=== PATIENT | male | born 1985 | race Caucasian/White ===

== ENCOUNTER 2023-07-20 18:13 | Emergency (ER) | payer OTHER, SELFPAY ==
[2023-07-20] VITALS (31 sets, daily range): BP systolic 96–126; BP diastolic 67–90; PULSE 71–180; RESP 15–22; TEMP 37.1; O2SAT 95–100
--- NOTE | ~2023-07-20 | XR_ITS ---
EXAMINATION: XR chest 1V portable Exam Date/Time: 07/20/2023 18:37 CDT HISTORY: Chest pain x1 day Comparison: 10/02/2022. RESULT: Lines, tubes, and devices: Defibrillator pad overlies the chest. Lungs and pleura: Clear. Cardiomediastinal silhouette: Stable. Other: No acute osseous or upper abdominal finding. IMPRESSION: No acute cardiopulmonary process. Reviewed, dictated and finalized at location K.
--- NOTE | 2023-07-20 18:15 | ECG_ITS ---
Measurements Intervals [place] Rate: 181 P: [place]: 0 QRS: 35 QRSD: 136 T: 197 QT: 275 QTc: 478 Interpretive Statements WIDE COMPLEX TACHYCARDIA, CONSIDER VENTRIULAR TACHYCARDIA LEFT BUNDLE BRANCH BLOCK BASELINE WANDER- V5 ABNORMAL ECG NO PREVIOUS ECG AVAILABLE FOR COMPARISON Electronically Signed On 07-20-2023 19:24:54 CDT by Rocky Rosales D.O.
--- NOTE | 2023-07-20 18:31 | ECG_ITS ---
Measurements Intervals [place] Rate: 79 P: 37 [place]: 130 QRS: 39 QRSD: 98 T: 30 QT: 360 QTc: 413 Interpretive Statements SINUS RHYTHM INCOMPLETE RIGHT BUNDLE BRANCH BLOCK BORDERLINE ECG COMPARED TO ECG 07/20/2023 18:17:56 SINUS RHYTHM NOW PRESENT Electronically Signed On 07-20-2023 19:19:17 CDT by Rocky Rosales D.O.
[2023-07-20 18:41] LABS: Basophils Absolute Auto 0.02 K/mm3 (0.00-0.10); Basophils Percent Auto 0.2 % (0.0-1.0); Eosinophils Absolute Auto 0.11 K/mm3 (0.02-0.50); Eosinophils Percent Auto 1.1 % (1.0-6.0); Hematocrit 44.6 % (40.0-54.0); Hemoglobin 15.1 g/dL (14.0-18.0); Immature Granulocyte Absolute 0.02 K/mm3 (0.00-0.00); Immature Granulocyte Percent A 0.2 % (0.0-0.0); Lymphocytes Absolute Auto 3.74 K/mm3 (1.10-4.50); Mean Corpuscular HGB Conc 33.9 g/dL (32-36); Mean Corpuscular Volume 88.5 fL (78.0-102.0); Mean Platelet Volume 11.4 fl (8.7-11.0); Monocytes Absolute Auto 0.54 K/mm3 (0.10-0.90); Monocytes Percent Auto 5.3 % (2.0-11.0); Neutrophils Absolute Auto 5.67 K/mm3 (1.70-7.20); Neutrophils Percent Auto 56.2 % (50.0-70.0); Platelet Count Result 251 K/mm3 (150-420); Red Blood Count 5.04 M/mm3 (4.70-6.10); Red Cell Distribution Width 12.9 % (11.6-14.4); White Blood Count 10.1 K/mm3 (4.8-10.8)
--- NOTE | 2023-07-20 18:44 | ED.CHESTPAIN ---
HPI - Chest Pain General Chief Complaint: Chest Pain <Shahid Castro MD - Last Filed: 07/20/23 18:54> Stated Complaint: rapid heart rate <Shahid Castro MD - Last Filed: 07/20/23 18:54> Time Seen by Provider: 07/20/23 20:14 <Shahid Castro MD - Last Filed: 07/20/23 18:54> Source: patient <Shahid Castro MD - Last Filed: 07/20/23 18:54> Mode of arrival: ambulatory <Shahid Castro MD - Last Filed: 07/20/23 18:54> Limitations: no limitations <Shahid Castro MD - Last Filed: 07/20/23 18:54> History of Present Illness HPI narrative: Patient is a 37-year-old male with known WPW and history of AFib and otherwise SVT issues. He is not on any medication at this time. He was to be on a blood thinner in the past but is not using any medication at this current time. He was outside today drinking minimal water and started to feel bad like it was some sort of arrhythmia and came to the emergency room. He was found to be in a wide complex tachycardia and self converted in 15 minutes of being in the emergency room. No medication was required and he converted to normal sinus rhythm. patient has been electro cardioverted twice in the past. <Shahid Castro MD - Last Filed: 07/20/23 18:54> MD complaint: chest pain and chest heaviness <Shahid Castro MD - Last Filed: 07/20/23 18:54> Pertinent past history: other ( Known arrhythmia issues; patient has heart ablation October this year) <Shahid Castro MD - Last Filed: 07/20/23 18:54> Onset (ago): hour(s) (1) <Shahid Castro MD - Last Filed: 07/20/23 18:54> Timing of current episode: constant <Shahid Castro MD - Last Filed: 07/20/23 18:54> Prior episodes: Yes <Shahid Castro MD - Last Filed: 07/20/23 18:54> Onset: during exertion <Shahid Castro MD - Last Filed: 07/20/23 18:54> Pain location: left chest <Shahid Castro MD - Last Filed: 07/20/23 18:54> Pain radiation: none <Shahid Castro MD - Last Filed: 07/20/23 18:54> Severity: moderate <Shahid Castro MD - Last Filed: 07/20/23 18:54> Pain scale (0-10): 5 <Shahid Castro MD - Last Filed: 07/20/23 18:54> Quality: tightness <Shahid Castro MD - Last Filed: 07/20/23 18:54> Relieving factors: nothing <Shahid Castro MD - Last Filed: 07/20/23 18:54> Exacerbating factors: nothing <Shahid Castro MD - Last Filed: 07/20/23 18:54> Context: other ( recurrent similar events) <Shahid Castro MD - Last Filed: 07/20/23 18:54> Associated symptoms: nausea, dyspnea and palpitations <Shahid Castro MD - Last Filed: 07/20/23 18:54> Treatment prior to arrival: none <Shahid Castro MD - Last Filed: 07/20/23 18:54> Risk Factors Coronary artery disease risk factors: none <Shahid Castro MD - Last Filed: 07/20/23 18:54> Thoracic aortic dissection risk factors: none <Shahid Castro MD - Last Filed: 07/20/23 18:54> Related Data Allergies/Adverse Reactions: Allergies Allergy/AdvReac Type Severity Reaction Status Date / Time No Known Allergies Allergy Verified 07/20/23 18:17 <Shahid Castro MD - Last Filed: 07/20/23 18:54> Exam Const: General: ill appearing <Shahid Castro MD - Last Filed: 07/20/23 18:54> Nutritional Appearance: well nourished <Shahid Castro MD - Last Filed: 07/20/23 18:54> Orientation/consciousness: patient oriented x3 <Shahid Castro MD - Last Filed: 07/20/23 18:54> HENMT: Head: normal to inspection <Shahid Castro MD - Last Filed: 07/20/23 18:54> Ears: external ears normal <Shahid Castro MD - Last Filed: 07/20/23 18:54> Face/Nose/Sinus: Normal external nose present <Shahid Castro MD - Last Filed: 07/20/23 18:54> Eyes: Conjunctivae: conjunctivae normal <Shahid Castro MD - Last Filed: 07/20/23 18:54> Pupils: Equal, round and reactive pupils present <Shahid Castro MD
[2023-07-20] MEDS: SODIUM CHLORIDE 0.9% IV 1,000 ML 999 ML IV CONT (18:45)
[2023-07-20 19:06] LABS: Alanine Aminotransferase 35 U/L (16-63); Albumin Level 3.4 g/dL (3.4-5.0); Alkaline Phosphatase 80 U/L (46-116); Anion Gap 15 mmol/L (8-16); Aspartate Amino Transferase 22 U/L (15-37); Bilirubin,Total 0.4 mg/dL (0.00-1.00); Blood Urea Nitrogen 23 mg/dL (7-18); Calcium 8.3 mg/dL (8.5-10.1); Carbon Dioxide 23 mmol/L (21-32); Chloride 104 mmol/L (98-108); Estimated CRCL calculation 118 ml/min; Estimated Glomerular Filt Rate > 60; Glucose 98 mg/dL (70-99); Magnesium 1.9 mg/dL (1.8-2.4); NT Pro B Type Natriuretic Pept 57 pg/mL (0-125); Osmolality Calculated 297 mOsm/kg (285-295); Potassium 3.9 mmol/L (3.5-5.1); Sodium 142 mmol/L (136-145); Thyroid Stimulating Hormone 2.48 uIU/mL (0.36-3.74); Total Protein 7.2 g/dL (6.4-8.2); Troponin I 25.1 ng/L (0.00-60.4)
--- NOTE | 2023-07-20 19:17 | PC.NURSE ---
family in with patient, call morgan in reach. remains sinus rhythm on monitor. denies nausea, chest pain has subsided.
[2023-07-20 19:22] LABS: D Dimer 0.19 mg/L (0.19-0.50); Partial Thromboplastin Time 33.7 Sec (23.9-30.70); Prothrombin Time 10.5 Seconds (9.50-12.1)
[2023-07-20] MEDS: APIXABAN 2.5 MG TABLET 5 MG PO (20:15)
--- NOTE | 2023-07-20 20:21 | PC.NURSE ---
dr frey in with pt and family. discussing plan of care. voiced understanding. pt and watching basketball. parents going home at this time. call morgan in reach.
[2023-07-20 21:48] LABS: Troponin I 320.6 ng/L (0.00-60.4)
--- NOTE | 2023-07-20 21:50 | PC.NURSE ---
2120 pt sitting up on edge of bed. food and drink given per pt request. ok per dr frey. awaiting troponin level.
--- NOTE | 2023-07-20 21:52 | ECG_ITS ---
Measurements Intervals [place] Rate: 76 P: 45 [place]: 134 QRS: 32 QRSD: 108 T: 40 QT: 389 QTc: 439 Interpretive Statements SINUS RHYTHM INCOMPLETE RIGHT BUNDLE BRANCH BLOCK BORDERLINE ECG COMPARED TO ECG 07/20/2023 18:40:37 NO SIGNIFICANT CHANGES Electronically Signed On 07-22-2023 8:02:41 CDT by Rocky Rosales D.O.
== END 2023-07-20 22:44 | disposition home or self-care (01) ==
PROVIDERS: Emergency Medicine; Emergency Provider Family Medicine
DX: R00.0 Tachycardia, unspecified (principal); I45.6 Pre-excitation syndrome; I24.89 Other forms of acute ischemic heart disease; I48.91 Unspecified atrial fibrillation
CPT/HCPCS: 36415; 71045; 80053; 83735; 83880; 84443; 84484; 85025; 85380; 85610; 85730; 93005; 96360; 99284; A9270; J0282; J7030